=== PATIENT | female | born 1930 | race African-American/Black ===

== ENCOUNTER 2018-07-17 16:11 | Emergency (ER) | payer MEDICARE ==
[~2018-07-17] VITALS: Ht 165.1 cm; Wt 72.6 kg
[2018-07-17 16:15] VITALS: BP 156/82
[2018-07-17] MEDS ORDERED: ASPI-1718 PO (16:44)
[2018-07-17] MEDS ORDERED: ATI.5 PO (16:44)
[2018-07-17] MEDS ORDERED: VENL37.55 PO (16:44)
[2018-07-17] MEDS ORDERED: NACL 0.9% 1,000 ML IV SCH (17:59)
[2018-07-17] MEDS ORDERED: ONDANSETRON 4 MG/2 ML VIAL IVP ONE (18:00)
[2018-07-17 18:57] LABS: BASOPHILS % (AUTO) 0.8 % (0.0-2.0); EOSINOPHILS # (AUTO) 0.1 K/uL (0-0.4); HEMATOCRIT 26.3 % (36-48); HEMOGLOBIN 7.8 g/dL (12.0-16.0); LYMPHOCYTES # (AUTO) 1.3 K/uL (2.5-16.5); LYMPHOCYTES % (AUTO) 21.3 % (20.5-51.1); MEAN CORPUSCULAR HEMOGLOBIN 21 pg (27-31); MEAN CORPUSCULAR HGB CONC 30 g/dL (33-37); MEAN CORPUSCULAR VOLUME 69.5 fL (80-94); MONOCYTES # (AUTO) 0.5 K/uL (0.8-1.0); MONOCYTES % (AUTO) 7.4 % (1.7-9.3); NEUTROPHILS # (AUTO) 4.4 K/uL (1.8-7.7); NEUTROPHILS % (AUTO) 69.5 % (42.2-75.2); PLATELET COUNT (AUTO) 222 K/uL (140-450); RED BLOOD CELL COUNT(AUTO) 3.79 MIL/uL (4.20-5.40); RED CELL DISTRIBUTION WIDTH 19.7 % (11.6-13.7); WHITE BLOOD COUNT (AUTO) 6.3 K/uL (4.8-10.8)
[2018-07-17 19:09] LABS: PROTHROMBIN TIME 9.3 secs (10.8-13.4)
[2018-07-17 19:13] LABS: ALBUMIN 3.1 g/dL (3.4-5.0); AMYLASE 134 U/L (25-115); ANION GAP 11.8 (8-16); ASPARTATE AMINOTRANSFERASE 17 U/L (15-37); CARBON DIOXIDE 27.1 mmol/L (21-32); CHLORIDE 106 mmol/L (98-107); CREATININE 1.3 mg/dL (0.6-1.3); GLUCOSE 92 mg/dL (74-106); LIPASE 185 U/L (73-393); MAGNESIUM 2.3 mg/dL (1.8-2.4); POTASSIUM 4.9 mmol/L (3.5-5.1); SODIUM SERUM 140 mmol/L (136-145); TOTAL BILIRUBIN 0.2 mg/dL (0.0-1.0); UREA NITROGEN, BLOOD 18 mg/dL (7-18)
--- NOTE | 2018-07-17 19:16 | NUR ---
EKG PERFORMED AT BEDSIDE WITH FAMILY PRESENT
--- NOTE | 2018-07-17 19:20 | NUR ---
GOT REPORT FROM AM RN. PT AAO X1, GCS 14, ABLE TO ANSWER YES AND NO QUESTIION AND SHORT SENTENCES. OPUPILS PERRL. RESPIATIONS EVEN AND UNLABORED, BL LUNG CLEAR. SKIN WARM/PINK/DRY, +PMAC. ABDOMEN SOFT, NON DISTENDED, ACTIVE BOWEL SOUND X4. VSS, WILL CONTINUE TO MONITOR
[2018-07-17 19:33] LABS: ACETONE, SERUM NEGATIVE (NEGATIVE)
[2018-07-17] MEDS ORDERED: LEVOFLOXACIN 500 MG/D5W PREMIX 100 ML IV ONE (20:15)
[2018-07-17] MEDS ORDERED: QUEtiapine FUMARATE 25 MG TAB PO ONE (20:15)
[2018-07-17 20:39] LABS: APPEARANCE,URINE CLOUDY (CLEAR); BILIRUBIN,URINE NEGATIVE (NEGATIVE); BLOOD, URINE NEGATIVE (NEGATIVE); COLOR,URINE YELLOW (YELLOW); LEUKOCYTE ESTERASE ,URINE TRACE (NEGATIVE); NITRITE, URINE NEGATIVE (NEGATIVE); UGLUCOSE NEGATIVE (NEGATIVE)
[2018-07-17 20:42] LABS: RBC,URINE 0-5 /HPF (0-5); URINE AMORPHOUS URATE 2+ /HPF (None Seen); WBC,URINE 0-5 /HPF (0-5)
[2018-07-17] MEDS ORDERED: fentaNYL 0.05 MG/ML VIAL IVP ONE (21:25)
[2018-07-17] MEDS ORDERED: QUEtiapine FUMARATE 25 MG TAB ONE (21:27)
--- NOTE | 2018-07-17 22:22 | NUR ---
Patient discharged with v/s stable. Written and verbal after care instructions given and explained. Patient verbalized understanding. Wheel Chair Assisted with to car. All questions addressed prior to discharge. Advised to follow up with PMD.
[2018-07-17 22:23] VITALS: BP 156/78
== END 2018-07-17 22:22 | disposition home or self-care (01) ==
LOC: MED 16:11
DX: N39.0 Urinary tract infection, site not specified (principal); D64.9 Anemia, unspecified; R55 Syncope and collapse; I11.0 Hypertensive heart disease with heart failure; I50.9 Heart failure, unspecified; F03.90 Unspecified dementia, unspecified severity, without behavioral disturbance, psychotic disturbance, mood disturbance, and anxiety; Z88.0 Allergy status to penicillin; Z88.2 Allergy status to sulfonamides; Z79.82 Long term (current) use of aspirin; Z79.899 Other long term (current) drug therapy; Z90.49 Acquired absence of other specified parts of digestive tract; Z90.710 Acquired absence of both cervix and uterus
CPT/HCPCS: 36415; 70450; 71045; 80053; 81001; 81025; 82009; 82140; 82150; 82948; 83690; 83735; 84484; 85025; 85610; 85730; 86886; 86900; 86901; 87086; 93005; 96365; 96375; 99284; J1956; J2405; J3010